=== PATIENT | male | born 1950 | race Caucasian/White ===

== ENCOUNTER → 2017-06-09 | Outpatient (CLI) | payer MEDICARE ==
--- NOTE | 2017-06-09 10:28 | CT ---
EXAMINATION TYPE: CT abdomen pelvis w con DATE OF EXAM: 06/09/2017 COMPARISON: NONE HISTORY: Incisional Hernia CT DLP: 3165 mGycm CONTRAST: CT scan of the abdomen and pelvis is performed with Oral Contrast and with IV Contrast, patient injec [place] with 100 ml mL of Omnipaque 300. FINDINGS: LUNG BASES-: No visible nodule. No infiltrate. LIVER/GB: No calcified gallstones. No space occupying hepatic lesion. Biliary tree is of normal ca liber. There is evidence of hepatic steatosis. PANCREAS: No inflammation. No distinct mass. SPLEEN: No splenic enlargement. No lesion seen. ADRENALS: No nodule. No thickening. KIDNEYS/BLADDER: No hydronephrosis. No nephrolithiasis. Tiny right renal cortical cyst identified. Urinary bladder grossly unremarkable. BOWEL: Normal appendix. Normal bowel caliber. No inflammation. GENITAL ORGANS: No gross abnormality. LYMPH NODES: No greater than 1cm abdominal or pelvic lymph nodes are appreciated. AORTA: No significant abnormality. OSSEOUS STRUCTURES: Degenerative changes lumbar spine. OTHER: Fat-containing left inguinal hernia identified. IMPRESSION: 1. Hepatic steatosis. 2. Fat-containing left inguinal hernia. 3 small right renal cortical cyst.
== END | disposition home or self-care (01) ==
LOC: RADCTMAIN 09:02
PROVIDERS: ATTEND Surgery
DX: K40.90 Unilateral inguinal hernia, without obstruction or gangrene, not specified as recurrent (principal); K76.0 Fatty (change of) liver, not elsewhere classified; N28.1 Cyst of kidney, acquired
CPT/HCPCS: 74177; Q9967

== ENCOUNTER → 2018-03-09 | Outpatient (CLI) | payer MEDICARE ==
[2018-03-09 13:33] LABS: Blood Urea Nitrogen 24 mg/dL (9-20)
--- NOTE | 2018-03-09 15:01 | CT ---
EXAMINATION TYPE: CT chest w con DATE OF EXAM: 03/09/2018 COMPARISON: NONE HISTORY: Patient complains of upper respiratory infection. Abnormal CXR at an outside facility. CT DLP: 738 mGycm. Automated Exposure Control for Dose Reduction was Utilized. TECHNIQUE: CT scan of the thorax is performed following with IV Contrast, patient injected with 100 mL of Isovue 300. FINDINGS: LUNGS: There is honeycombing in a predominantly peripheral basilar distribution compatible with pulmo nary fibrosis overall mild in degree. Scattered mild paraseptal emphysematous changes are seen most p ronounced at the lung apices. 2 mm right upper lobe pulmonary nodule seen in the subpleural location on series 4 image 28. Just inferior to this on image 29 there is an additional 2 mm subpleural solid pulmonary nodule. No focal consolidation to suggest pneumonia is seen. No pulmonary mass is identified. There is no ple ural effusion or pneumothorax seen. The tracheobronchial tree is patent. MEDIASTINUM: There are no greater than 1 cm hilar or mediastinal lymph nodes. No pericardial effusi on is seen. Ascending thoracic aorta is within normal limits of size measuring 3.1 cm. Minimal coron maikel artery calcifications are seen. OTHER: Small right-sided diaphragmatic rent with abdominal fat herniation. Hepatic parenchyma is diff usely hypoattenuated in comparison to that of the spleen, most commonly seen in hepatic steatosis. Th is finding limits evaluation for hepatic masses. No gross evidence of hepatic mass is seen. No intrah epatic biliary ductal dilatation. No cholelithiasis partial visualization of an anterior cervical fus ion device. Chronic right anterolateral rib fracture deformities are seen. Moderate multilevel degene rative changes of the thoracic spine with bridging anterior osteophytes possibly relating to diffuse idiopathic skeletal hyperostosis. IMPRESSION: 1. No focal consolidation to suggest pneumonia. 2. Findings compatible with pulmonary fibrosis, overall mild and the. 3. Mild paraseptal pulmonary emphysema. 4. Two 2mm right-sided pulmonary nodules for which follow-up CT in one year is recommended to establi sh stability or assess for progression.
== END | disposition home or self-care (01) ==
LOC: RADCTMAIN 12:55
PROVIDERS: ATTEND Family Medicine
DX: J43.9 Emphysema, unspecified (principal); R91.8 Other nonspecific abnormal finding of lung field
CPT/HCPCS: 82565; 84520; 71260; Q9967

== ENCOUNTER → 2018-03-13 | Outpatient (CLI) | payer MEDICARE ==
--- NOTE | 2018-03-13 09:13 | US ---
EXAMINATION TYPE: US prostate transrectal DATE OF EXAM: 03/13/2018 COMPARISON: US 03/16/2011 CLINICAL HISTORY: R97.20 elevated PSA. This examination was performed using the transrectal probe. EXAM MEASUREMENTS: Gland Size: 5.1 x 2.8 x 5.0cm Volume: 37.2 Predicted PSA: 4.5 Actual PSA (if available): 0.7 from 1.1 from January No distinct mass seen, heterogeneous gland. IMPRESSION: 1. Enlarged gland. No suspicious nodule identified. 2. Correlate with actual PSA. Predicted PSA = volume x 0.12 ng/ml Calculated Volume = 0.5236 x L x W x H
== END | disposition home or self-care (01) ==
LOC: RADUSMAIN 07:53
PROVIDERS: ATTEND Family Medicine
DX: N40.0 Benign prostatic hyperplasia without lower urinary tract symptoms (principal); R97.20 Elevated prostate specific antigen [PSA]
CPT/HCPCS: 76872

== ENCOUNTER → 2018-04-26 | Outpatient (CLI) | payer MEDICARE ==
--- NOTE | 2018-04-26 08:11 | US ---
EXAMINATION TYPE: US duplex aorta DATE OF EXAM: 04/26/2018 COMPARISON: CT abdomen and pelvis June 09, 2017 CLINICAL HISTORY: Z13.6 screening for cardiovascular disease. EXAM MEASUREMENTS: Abdominal Aorta: Proximal: 2.0 cm, not seen transversely Mid: 2.1 x 2.1 cm Distal: 1.9 x 1.6 cm Bifurcation: rt, 1.3 x 1.3 cm lt, 1.4 x 1.4 cm There is no aneurysmal change of the visualized abdominal aorta on images saved. Findings correlate w ith CT from one year earlier. IMPRESSION: Slightly suboptimal study without AAA.
== END | disposition home or self-care (01) ==
LOC: RADUSWWP 07:25
PROVIDERS: ATTEND Family Medicine
DX: Z13.6 Encounter for screening for cardiovascular disorders (principal)
CPT/HCPCS: 93979

== ENCOUNTER → 2018-06-28 | Outpatient (CLI) | payer MEDICARE ==
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
== END | disposition home or self-care (01) ==
LOC: SLEEP 10:00
PROVIDERS: ATTEND Internal Medicine
DX: G47.33 Obstructive sleep apnea (adult) (pediatric) (principal); I10 Essential (primary) hypertension; Z99.89 Dependence on other enabling machines and devices; Z79.891 Long term (current) use of opiate analgesic; Z98.890 Other specified postprocedural states; Z87.828 Personal history of other (healed) physical injury and trauma; Z96.659 Presence of unspecified artificial knee joint

== ENCOUNTER → 2018-11-15 | Outpatient (CLI) | payer MEDICARE ==
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
== END | disposition home or self-care (01) ==
LOC: SLEEP 10:08
PROVIDERS: ATTEND Internal Medicine
DX: G47.33 Obstructive sleep apnea (adult) (pediatric) (principal); I10 Essential (primary) hypertension; Z87.81 Personal history of (healed) traumatic fracture; Z87.898 Personal history of other specified conditions; Z99.89 Dependence on other enabling machines and devices; Z96.659 Presence of unspecified artificial knee joint; Z98.890 Other specified postprocedural states

== ENCOUNTER → 2019-02-12 | Outpatient (CLI) | payer MEDICARE ==
--- NOTE | 2019-02-12 09:38 | MR ---
EXAMINATION TYPE: MR lumbar spine wo con DATE OF EXAM: 02/12/2019 COMPARISON: NONE HISTORY: Low back pain into rt thigh TECHNIQUE: T1 and T2 axial and sagittal images of the lumbar spine are submitted. FINDINGS: There is no abnormal signal seen within the visualized spinal cord or paraspinal soft tissu es. At L1-2 there is mild circumferential disc bulging but no canal stenosis. No focal herniation. Mild h ypertrophic change of the facets. Neural foramina remain patent. There is mild disc desiccation. At L2-3 there is a circumferential disc bulging. Mild hypertrophic change of the facets. There is mil d bilateral foraminal encroachment. No Canal stenosis. At L3-4 there is mild facet arthropathy with circumferential disc bulging but no canal stenosis. Neur al foramina remain patent. At L4-5 there is a more advanced facet arthropathy with diffuse disc bulging but more focal small david tral disc protrusion resulting in moderate anterior compression of the thecal sac. Ligamentum flavum hypertrophy is noted which contributes to mild central stenosis. Neural foramina remain patent. At L5-S1 there is facet arthropathy and broad-based central disc bulging. No Canal stenosis. Neural f oramina remain patent. There is multilevel disc desiccation compatible with multilevel degenerative disc disease. Aorta of n ormal caliber. IMPRESSION: 1. Disc protrusion with hypertrophic changes L4-L5 results in mild canal stenosis. 2. Additional multilevel disc bulging but no additional canal stenosis. Mild bilateral foraminal encr oachment L2-L3. 3. Multilevel mild degenerative disc disease.
== END | disposition home or self-care (01) ==
LOC: RADMRIMAIN 08:22
PROVIDERS: ATTEND Family Medicine
DX: M48.061 Spinal stenosis, lumbar region without neurogenic claudication (principal); M51.26 Other intervertebral disc displacement, lumbar region; M51.36 Other intervertebral disc degeneration, lumbar region
CPT/HCPCS: 72148

== ENCOUNTER → 2019-10-25 | Outpatient (CLI) | payer MEDICARE, OTHER ==
--- NOTE | 2019-10-26 15:53 | ECHOF ---
Referral Reason:R06.09 Dyspnea on exertion MEASUREMENTS -------- HEIGHT: 170.2 cm WEIGHT: 99.8 kg BP: 140/49 RVIDd: 3.4 cm (< 3.3) IVSd: 1.3 cm (0.6 - 1.1) LVIDd: 5.5 cm (3.9 - 5.3) LVPWd: 1.1 cm (0.6 - 1.1) IVSs: 1.7 cm LVIDs: 3.0 cm LVPWs: 1.6 cm LA Diam: 3.9 cm (2.7 - 3.8) LAESV Index (A-L): 21.56 ml/m Ao Diam: 3.6 cm (2.0 - 3.7) AV Cusp: 1.8 cm (1.5 - 2.6) MV EXCURSION: 13.883 mm (> 18.000) MV EF SLOPE: 67 mm/s (70 - 150) EPSS: 0.5 cm MV E Boni: 0.96 m/s MV DecT: 200 ms MV A Boni: 0.77 m/s MV E/A Ratio: 1.25 RAP: 5.00 mmHg RVSP: 29.66 mmHg TAPSE: 26.90 mm FINDINGS -------- Sinus rhythm. This was a technically adequate study. The left ventricular size is normal. There is mild concentric left ventricular hypertrophy. Overa ll left ventricular systolic function is normal with, an EF between 55 - 60 %. The right ventricle is mildly enlarged. Normal LA size by volume 22+/-6 ml/m2. The right atrium is normal in size. Interatrial and interventricular septum intact. The aortic valve is trileaflet and appears structurally normal. The mitral valve is normal. Mild tricuspid regurgitation present. Right ventricular systolic pressure is normal at < 35 mmHg. Trace/mild (physiologic) pulmonic regurgitation. The aortic root size is normal. Normal inferior vena cava with normal inspiratory collapse consistent with estimated right atrial pre ssure of 5 mmHg. There is no pericardial effusion. CONCLUSIONS -------- 1. Sinus rhythm. 2. This was a technically adequate study. 3. The left ventricular size is normal. 4. There is mild concentric left ventricular hypertrophy. 5. The right ventricle is mildly enlarged. 6. Normal LA size by volume 22+/-6 ml/m2. 7. The right atrium is normal in size. 8. Interatrial and interventricular septum intact. 9. The aortic valve is trileaflet and appears structurally normal. 10. The mitral valve is normal. 11. Mild tricuspid regurgitation present. 12. Right ventricular systolic pressure is normal at < 35 mmHg. 13. Trace/mild (physiologic) pulmonic regurgitation. 14. The aortic root size is normal. 15. Normal inferior vena cava with normal inspiratory collapse consistent with estimated right atrial pressure of 5 mmHg. 16. There is no pericardial effusion. REINFORCED CONCRETE INSPECTOR: Sonya Monzon RDCS
== END | disposition home or self-care (01) ==
LOC: RADECHMAIN 14:42
PROVIDERS: ATTEND Family Medicine
DX: I07.1 Rheumatic tricuspid insufficiency (principal); I37.1 Nonrheumatic pulmonary valve insufficiency
CPT/HCPCS: 93306

== ENCOUNTER → 2021-01-13 | Outpatient (CLI) | payer MEDICARE, OTHER ==
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
== END ==
LOC: SLEEP 13:43
PROVIDERS: ATTEND Internal Medicine
DX: G47.33 Obstructive sleep apnea (adult) (pediatric) (principal); I10 Essential (primary) hypertension; Z87.828 Personal history of other (healed) physical injury and trauma; Z98.890 Other specified postprocedural states; Z96.659 Presence of unspecified artificial knee joint; Z87.898 Personal history of other specified conditions

== ENCOUNTER → 2021-07-01 | Outpatient (CLI) | payer MEDICARE, OTHER ==
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
== END ==
LOC: SLEEP 10:44
PROVIDERS: ATTEND Internal Medicine
DX: G47.33 Obstructive sleep apnea (adult) (pediatric) (principal); I10 Essential (primary) hypertension; F17.200 Nicotine dependence, unspecified, uncomplicated; Z96.659 Presence of unspecified artificial knee joint; Z99.89 Dependence on other enabling machines and devices; Z98.890 Other specified postprocedural states; Z87.81 Personal history of (healed) traumatic fracture; Z88.5 Allergy status to narcotic agent

== ENCOUNTER → 2021-12-29 | Outpatient (CLI) | payer MEDICARE, OTHER ==
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
== END ==
LOC: SLEEP 10:32
PROVIDERS: ATTEND Internal Medicine
DX: G47.33 Obstructive sleep apnea (adult) (pediatric) (principal); I10 Essential (primary) hypertension; Z98.890 Other specified postprocedural states; Z96.652 Presence of left artificial knee joint; Z99.89 Dependence on other enabling machines and devices; G47.61 Periodic limb movement disorder; Z87.81 Personal history of (healed) traumatic fracture; F17.200 Nicotine dependence, unspecified, uncomplicated; Z88.5 Allergy status to narcotic agent

== ENCOUNTER 2022-08-02 09:43 | Day surgery (SDC) | payer MEDICARE, OTHER ==
[~2022-08-02 09:43] MED LIST: LACTATED RINGERS 1,000 ML IV SCH
[2022-08-02 10:15] VITALS: TEMP 98
[2022-08-02] MEDS ORDERED: LIDOCAINE 2% INJ 20 MG/ML (2 ML VIAL) ONE (10:51)
[2022-08-02] MEDS ORDERED: PROPOFOL 10 MG/ML 20 ML VIAL IV ONE (10:51)
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
--- NOTE | 2022-08-02 11:11 | P.PCN ---
Date of Procedure: 08/02/22 Procedure(s) Performed: PREOPERATIVE DIAGNOSIS: Rectal bleeding POSTOPERATIVE DIAGNOSIS: Hepatic flexure polyp, descending colon polyp PROCEDURE: Colonoscopy with snare polypectomy ANESTHESIA: MAC SURGEON: Michael Wick M.D. SPECIMENS: Polyps ENDOSCOPIC PROCEDURE: The patient was placed on the endoscopy table in the left decubitus position. The Olympus colonoscope was inserted into the anus and passed under direct visualization to the base of the cecum. The appendiceal orifice was visualized. From that point the scope was slowly withdrawn inspecting all surfaces carefully. There were no neoplastic inflammatory or polypoid lesions throughout the cecum or ascending colon. At the hepatic flexur e there was noted to be a submucosal lipoma. In that neighborhood there was also a small polyp that was removed using the snare with cautery technique. The remainder of the transverse colon appeared normal. In the distal descending colon there is noted to be another small polyp removed using the snare with cautery technique. The previous colorectal anastomosis was widely patent. The rectum appeared normal. The patient had some retained liquid and solid stool noted. There is no visible diverticulosis. Digital rectal examination was normal. The patient did have mild pruritus ani noted. The patient was taken to the recovery room in stable condition per anesthesia guidelines. RECOMMENDATIONS: Resume diet. Await biopsy results. Anticipate repeat colonoscopy 5 years.
[2022-08-02 11:16] VITALS: RESP 16
[2022-08-02 11:30] VITALS: BP 161/82; PULSE 62
== END 2022-08-02 12:00 | disposition home or self-care (01) ==
LOC: ORWHC2ENDO 09:43
PROVIDERS: ATTEND Surgery
DX: D12.3 Benign neoplasm of transverse colon (principal); D12.4 Benign neoplasm of descending colon; K62.5 Hemorrhage of anus and rectum; I10 Essential (primary) hypertension; E66.9 Obesity, unspecified; Z68.1 Body mass index [BMI] 19.9 or less, adult; Z87.19 Personal history of other diseases of the digestive system; G47.33 Obstructive sleep apnea (adult) (pediatric); Z87.39 Personal history of other diseases of the musculoskeletal system and connective tissue; Z90.79 Acquired absence of other genital organ(s); Z96.652 Presence of left artificial knee joint; Z87.891 Personal history of nicotine dependence; Z79.899 Other long term (current) drug therapy; Z88.5 Allergy status to narcotic agent
CPT/HCPCS: 88305; 45385; J2704; J2001

== ENCOUNTER → 2022-12-28 | Outpatient (CLI) | payer MEDICARE, OTHER ==
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
== END ==
LOC: SLEEP 09:54
PROVIDERS: ATTEND Internal Medicine
DX: G47.33 Obstructive sleep apnea (adult) (pediatric) (principal); I10 Essential (primary) hypertension; E66.9 Obesity, unspecified; Z68.38 Body mass index [BMI] 38.0-38.9, adult; Z96.652 Presence of left artificial knee joint; Z88.5 Allergy status to narcotic agent; F17.200 Nicotine dependence, unspecified, uncomplicated
CPT/HCPCS: 99212

== ENCOUNTER → 2023-03-02 | Outpatient (CLI) | payer MEDICARE, OTHER | END | disposition home or self-care (01) | LOC: LABWHC1 15:29 | PROVIDERS: ATTEND Otolaryngology | DX: R68.2 Dry mouth, unspecified (principal) | CPT/HCPCS: 36415; 85652; 86038; 86140; 86235 ==

== ENCOUNTER → 2023-08-23 | Outpatient (CLI) | payer MEDICARE ==
[2023-08-23 19:54] LABS: HCT 48.2 % (39.6-50.0); HGB 15.3 g/dL (13.0-17.0); MCH 27.6 pg (27.0-32.0); MCHC 31.7 g/dL (32.0-37.0); Mean Platelet Volume 10.7 FL (9.5-12.2); NRBC Per 100 WBC 0 X 10*3/uL (0.00-0.01); Platelet Count 259 X 10*3/uL (140-440); RBC 5.54 X 10*6/uL (4.40-5.60); RDW 12.9 % (11.5-14.5); WBC 8.81 X 10*3/uL (4.50-10.00)
== END | disposition home or self-care (01) ==
LOC: LABPAT 11:53
PROVIDERS: ATTEND Surgery Plastic and Reconstructive Surgery
DX: Z01.812 Encounter for preprocedural laboratory examination (principal); K43.9 Ventral hernia without obstruction or gangrene
CPT/HCPCS: 85027

== ENCOUNTER 2023-08-25 11:35 | Day surgery (SDC) | payer MEDICARE, OTHER ==
[2023-08-21 15:17] VITALS: BMI 34.2
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
[~2023-08-25 11:35] MED LIST changes: +ACETAMINOPHEN TAB 500 MG TAB PO PRN; +HEPARIN SODIUM,PORCINE/PF 5,000 UNIT/0.5 ML SYRINGE SQ PRN; -LACTATED RINGERS 1,000 ML IV SCH; +MELOXICAM 7.5 MG TAB PO PRN; +ONDANSETRON 4 MG/2 ML VIAL IVP PRN
[2023-08-25] MEDS ORDERED: MIDAZOLAM 2 MG/2 ML VIAL IV PRN (11:57)
[2023-08-25] MEDS ORDERED: fentaNYL (PF) 50 MCG/ML 2 ML AMP IV PRN (11:57)
[2023-08-25] MEDS ORDERED: LACTATED RINGERS 1,000 ML IV SCH (11:57)
[2023-08-25 12:49] LABS: Glucose,Whole Blood 99 mg/dL (70-110)
[2023-08-25] MEDS ORDERED: ONDANSETRON 4 MG/2 ML VIAL IVP ONE (12:50)
[2023-08-25] MEDS ORDERED: DEXAMETHASONE SOD PHOSPHATE 4 MG/ML 1 ML VIAL IVP ONE (12:50)
[2023-08-25] MEDS ORDERED: TAMSULOSIN 0.4 MG CAP.ER.24H PO ONE (12:50)
[2023-08-25 12:55] LABS: Basophils % (A) 0 %; Eosinophils # (A) 0.2 k/uL (0-0.7); Eosinophils % (A) 2 %; HCT 47.8 % (39.0-53.0); HGB 15.6 gm/dL (13.0-17.5); Lymphocytes # (A) 1.7 k/uL (1.0-4.8); Lymphocytes % (A) 17 %; MCH 28.1 pg (25.0-35.0); MCHC 32.7 g/dL (31.0-37.0); Mean Platelet Volume 7.5; Monocytes # (A) 0.6 k/uL (0-1.0); Monocytes % (A) 5 %; Neutrophils # (A) 7.5 k/uL (1.3-7.7); Neutrophils % (A) 74 %; Platelet Count 231 k/uL (150-450); RBC 5.56 m/uL (4.30-5.90); RDW 12.8 % (11.5-15.5); WBC 10.1 k/uL (3.8-10.6)
[2023-08-25] MEDS ORDERED: MIDAZOLAM 2 MG/2 ML VIAL IVP ONE (13:04)
[2023-08-25] MEDS ORDERED: fentaNYL (PF) 50 MCG/ML 2 ML AMP IVP ONE (13:04)
[2023-08-25 13:05] LABS: ALT 33 U/L (4-49); AST 46 U/L (17-59); African American GFR (CKD) >90 (>60 ml/min/1.73 sqM); Albumin 4.4 g/dL (3.5-5.0); Alkaline Phosphatase 101 U/L (38-126); Anion Gap 7 mmol/L; Blood Urea Nitrogen 20 mg/dL (9-20); Calcium 9.3 mg/dL (8.4-10.2); Carbon Dioxide 26 mmol/L (22-30); Chloride 107 mmol/L (98-107); Glucose 98 mg/dL (74-99); Non-African American GFR(CKD) 84 (>60 ml/min/1.73 sqM); Sodium 140 mmol/L (137-145); Total Bilirubin 1.2 mg/dL (0.2-1.3); Total Protein 7.6 g/dL (6.3-8.2)
[2023-08-25 13:08] LABS: Potassium 5.4 mmol/L (3.5-5.1)
--- NOTE | 2023-08-25 13:17 | P.ANPRN ---
Procedure Note - Anesthesia - Nerve Block Performed Bilateral Erector Spinae Single Time Out Performed: Yes Date of Procedure: 08/25/23 Procedure Start Time: 13:03 Procedure Stop Time: 13:14 Location of Patient: PreOp Indication: Acute Post-Operative Pain, Requested by Surgeon Sedation Type: Sedate with meaningful contact maintained Preparation: Sterile Prep Position: Sitting Needle Types: Pajunk Needle Gauge: 21 Ultrasound used to visualize needle placement: Yes Ultrasound used to observe medication spread: Yes Injectate: 0.5% Ropivacaine (see comment for volume) (15 ml + 15 ml NS + 4 mg Dexamethasone per side) Blood Aspirated: No Pain Paresthesia on Injection Noted: No Resistance on Injection: Normal Image Stored and Saved: Yes Events: Uneventful and Well Tolerated
[2023-08-25] MEDS ORDERED: HEPARIN SODIUM,PORCINE 5,000 UNIT/ML 1 ML VIAL SQ ONE (13:20)
[2023-08-25] MEDS ORDERED: DEXAMETHASONE SOD PHOSPHATE 4 MG/ML 1 ML VIAL ONE (13:26)
[2023-08-25] MEDS ORDERED: NEOSTIGMINE 1 MG/ML 10 ML VIAL ONE (13:26)
[2023-08-25] MEDS ORDERED: LIDOCAINE 1% INJ 10MG/ML (20 ML MDV) ONE (13:26)
[2023-08-25] MEDS ORDERED: GLYCOPYRROLATE 0.2 MG/ML 2 ML VIAL ONE (13:26)
[2023-08-25] MEDS ORDERED: SUCCINYLCHOLINE CHLORIDE 200 MG/10 ML VIAL IV ONE (13:26)
[2023-08-25] MEDS ORDERED: SODIUM CHLORIDE 0.9% (PF) 10 ML VIAL ONE (13:26)
[2023-08-25] MEDS ORDERED: ROCURONIUM 10 MG/ML (5 ML VIAL) IV ONE (13:26)
[2023-08-25] MEDS ORDERED: ROPIVACAINE 5 MG/ML 30 ML VIAL ONE (13:26)
[2023-08-25] MEDS ORDERED: MIDAZOLAM 2 MG/2 ML VIAL ONE (13:26)
[2023-08-25] MEDS ORDERED: PROPOFOL 10 MG/ML 20 ML VIAL IV ONE (13:26)
[2023-08-25] MEDS ORDERED: fentaNYL (PF) 50 MCG/ML 2 ML AMP ONE (13:26)
[2023-08-25] MEDS ORDERED: LIDOCAINE 2%-EPI 1:100,000 20 ML VIAL SQ ONE (13:30)
[2023-08-25] MEDS ORDERED: LACTATED RINGERS 1,000 ML IV ONE ×2 (13:30→14:52)
[2023-08-25] MEDS: MEPERIDINE 50 MG/ML SYRINGE IVP ONE ×2 (15:35→15:48)
[2023-08-25 16:01] VITALS: TEMP 97.4
--- NOTE | 2023-08-25 17:05 | P.OP ---
Date of Procedure: 08/25/23 Description of Procedure: SURGEON: CHING PABLO MD PREOPERATIVE DIAGNOSES: 1. Initial incisional ventral hernia with incarceration, 5-cm 2. Initial incarcerated umbilical hernia, 2 cm 3. Morbid obesity due to excess calories, BMI 35.1 4. Chronic narcotic use due to chronic neck pain 5. Hypertensive heart disease with congestive heart failure 6. History of exploratory laparotomy 7. Obstructive sleep apnea 8. Obstructive uropathy due to prostate disorder POSTOPERATIVE DIAGNOSES: 1. Initial incisional ventral hernia with incarceration, 5-cm 2. Initial incarcerated umbilical hernia, 2 cm 3. Morbid obesity due to excess calories, BMI 35.1 4. Chronic narcotic use due to chronic neck pain 5. Hypertensive heart disease with congestive heart failure 6. History of exploratory laparotomy 7. Obstructive sleep apnea 8. Obstructive uropathy due to prostate disorder 9. Severe pelvic adhesions 10. Severe intra-abdominal adhesions OPERATION: 1. Robotic-assisted daVinci Xi laparoscopic repair of initial incarcerated incisional ventral hernia 5-cm with mesh, 10 x [address] Mesh 2. Robotic-assisted daVinci Xi laparoscopic repair of initial incarcerated umbilical hernia 2 -cm, 10 x [address] Mesh 3. Robotic-assisted daVinci Xi laparoscopic extensive lysis of adhesions over 1 hour ANESTHESIA: General with local, block ESTIMATED BLOOD LOSS: 5 mL. SPECIMENS: None. COMPLICATIONS: None. Operative Findings: 1. Severe intra-abdominal adhesions including pelvic adhesions 2. Combined ventral hernia and [place] cheese defect incisional hernia, 7 cm repaired with fascial imbrication and mesh 3. Severe midline adhesion and pelvic adhesions INDICATIONS: The patient is a 72-year-old male who presents with incisional ventral hernia and abdominal pain. Surgical intervention with laparoscopic versus robotic and open techniques were reviewed. Placement of mesh was also reviewed. Benefits and risks were thoroughly described. Informed consent was obtained. DESCRIPTION OF PROCEDURE: The patient was brought into the operating room and laid in supine position. After general induction, the abdomen had been prepped and draped in standard sterile fashion. [place] draping was also placed. Prior to incision, a timeout protocol was confirmed with surgical team regarding the patient's name including procedures to be performed. The robot was primed prior to the procedure. A field block using local anesthetis was placed along hernia site including the proposed port sites. Initial incision was made with an #11 blade along the left upper quadrant. A 0 degree 5 mm laparoscopic trocar entry was performed. Diagnostic laparoscopy demonstrated severe peritoneal adhesions along the midline, upper abdomen and pelvis. Robotic 8 mm trochars were placed on the left lateral abdominal wall including above the pelvis. The 5-mm port was exchanged for an 8 mm robotic port. Placements of the ports were 15 cm from the target anatomy and 9 cm apart. The da Johnson XI robot was previously primed, prepped and draped then docked along the left side of the patient. I then sat at the robot Da Johnson XI console where working arms of the robot including Bovie cautery connected to robotic scissors, vessel sealer and graspers placed by the insurance underwriting assistant. Adhesions along the midline were initially addressed with scissors and vessel sealer. Extensive lysis of adhesions occurred over 1 hour without enterotomies using vessel sealer and blunt dissection to release the greater omentum from the abdominal wall. Accessory laparoscopic 12 trochars placed at the epigastrium of the left upper quadrant. The hernia bordering fascia was cleaned of peritoneal fat. Incarcerated incisional hernia epigastrium was cheese defect was found. Incarcerated umbilical hernia 2 cm also found. Next, hemostasis was checked with cautery. The hernia defect was oversewn using #1 VLOC with fascial imbrication 3. Mesh placement was avoided given the severe peritoneal adhesions and foreign body reaction to the mesh. A final endoscopic imaging was obtained. All instruments and pneumoperitoneum were evacuated from the abdominal cavity. The da Johnson XI robot was undocked from the patient. I re-scrubbed into the case for closure of incisions. The incisions were reapproximated using 4-0 Monocryl in an interrupted subcuticular fashion. Liquid glue was applied to the skin. At the end of the procedure, needle, sponge, and instrument count had been verified correct by surgical instrument repair specialist. The patient was taken to the postanesthesia care unit in stable condition with abdominal binder. Plan - Discharge Summary Discharge Rx Participant: Yes New Discharge Prescriptions: New Simethicone [Gas-X] 125 mg PO AC-TID PRN #20 capsule PRN Reason: Pain Cyclobenzaprine [Flexeril] 10 mg PO TID #30 tab Continue oxyCODONE ER [OxyCONTIN] 60 mg PO Q12HR Doxazosin Mesylate [Cardura] 4 mg PO HS Cholecalciferol [Vitamin D3 (25 Mcg = 1000 Iu)] 5,000 units PO DAILY metFORMIN HCL ER [Glucophage XR] 500 mg PO DAILY Rosuvastatin [Crestor] 20 mg PO HS Losartan [Cozaar] 25 mg PO DAILY Discharge Medication List Cholecalciferol [Vitamin D3 (25 Mcg = 1000 Iu)] 5,000 units PO DAILY 02/03/15 [History] Doxazosin Mesylate [Cardura] 4 mg PO HS 02/03/15 [History] oxyCODONE ER [OxyCONTIN] 60 mg PO Q12HR 02/03/15 [History] Losartan [Cozaar] 25 mg PO DAILY 08/21/23 [History] Rosuvastatin [Crestor] 20 mg PO HS 08/21/23 [History] metFORMIN HCL ER [Glucophage XR] 500 mg PO DAILY 08/21/23 [History] Cyclobenzaprine [Flexeril] 10 mg PO TID #30 tab 08/25/23 [Rx] Simethicone [Gas-X] 125 mg PO AC-TID PRN #20 capsule 08/25/23 [Rx] Follow up Appointment(s)/Referral(s): Ching Pablo MD [STAFF PHYSICIAN] - 08/29/23 2:00 pm Patient Instructions/Handouts: *Surgery [facility] - (Anesthesia) Discharge Instructions Outpatient Surgery, Laparoscopic Herniorrhaphy (DC), Abdominal Binder (DC), Ventral Hernia Repair (GEN) Activity/Diet/Wound Care/Special Instructions: DO NOT REMOVE DRESSING AT UMBILICUS No lifting for 4 pounds in 4 weeks, Sep 24 Using antibacterial soap. May shower. No bathtub soaks for 2 weeks, Sep 08 Wear abdominal binder daily for comfort except for showering. Use ice along incisions for today to prevent swelling. Use Tylenol, simethicone and ibuprofen or Aleve scheduled for the next 24-48 hours for best pain relief. Discharge Disposition: HOME SELF-CARE
[2023-08-25 17:28] VITALS: BP 156/79; PULSE 72; RESP 20
== END 2023-08-25 17:18 | disposition home or self-care (01) ==
LOC: OR 11:35
PROVIDERS: ATTEND Surgery Plastic and Reconstructive Surgery
DX: K43.6 Other and unspecified ventral hernia with obstruction, without gangrene (principal); K42.0 Umbilical hernia with obstruction, without gangrene; E66.01 Morbid (severe) obesity due to excess calories; Z68.35 Body mass index [BMI] 35.0-35.9, adult; G89.29 Other chronic pain; Z79.891 Long term (current) use of opiate analgesic; I11.0 Hypertensive heart disease with heart failure; E11.9 Type 2 diabetes mellitus without complications; G47.33 Obstructive sleep apnea (adult) (pediatric); N13.9 Obstructive and reflux uropathy, unspecified; G89.18 Other acute postprocedural pain; K66.0 Peritoneal adhesions (postprocedural) (postinfection); R19.4 Change in bowel habit; I10 Essential (primary) hypertension; E78.5 Hyperlipidemia, unspecified; M79.9 Soft tissue disorder, unspecified; N40.0 Benign prostatic hyperplasia without lower urinary tract symptoms; Z90.79 Acquired absence of other genital organ(s); Z98.41 Cataract extraction status, right eye; Z98.890 Other specified postprocedural states; Z87.891 Personal history of nicotine dependence; Z79.02 Long term (current) use of antithrombotics/antiplatelets; Z79.84 Long term (current) use of oral hypoglycemic drugs; Z79.811 Long term (current) use of aromatase inhibitors; Z79.899 Other long term (current) drug therapy; Z88.5 Allergy status to narcotic agent
CPT/HCPCS: 49594; S2900; 64999; 80053; 85025

== ENCOUNTER → 2024-01-03 | Outpatient (CLI) | payer MEDICARE ==
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
[2024-01-03 11:01] VITALS: BP 151/78; PULSE 72; RESP 16; TEMP 98.3
== END ==
LOC: 3 N SLEEP 10:16
PROVIDERS: ATTEND Internal Medicine
DX: G47.33 Obstructive sleep apnea (adult) (pediatric) (principal); G47.61 Periodic limb movement disorder; E66.9 Obesity, unspecified; I10 Essential (primary) hypertension; F17.200 Nicotine dependence, unspecified, uncomplicated; Z98.890 Other specified postprocedural states; Z99.89 Dependence on other enabling machines and devices; Z88.8 Allergy status to other drugs, medicaments and biological substances
CPT/HCPCS: 99212

== ENCOUNTER → 2025-01-01 | Outpatient (CLI) | payer MEDICARE ==
[2025-01-01 10:35] VITALS: BP 149/88; PULSE 76; RESP 16; TEMP 97.9
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
== END ==
LOC: 3 N SLEEP 10:20
PROVIDERS: ATTEND Internal Medicine
DX: G47.33 Obstructive sleep apnea (adult) (pediatric) (principal); E66.9 Obesity, unspecified; F17.210 Nicotine dependence, cigarettes, uncomplicated; Z85.828 Personal history of other malignant neoplasm of skin; Z96.652 Presence of left artificial knee joint; Z98.890 Other specified postprocedural states; Z87.81 Personal history of (healed) traumatic fracture; Z68.37 Body mass index [BMI] 37.0-37.9, adult; Z88.5 Allergy status to narcotic agent
CPT/HCPCS: 99212